=== PATIENT | female | born 1965 | race Caucasian/White ===

== ENCOUNTER 2016-09-18 10:08 | Day surgery (SDC) | payer MEDICARE ==
--- NOTE | 2016-09-18 07:20 | History and Physical Report ---
CHIEF COMPLAINT/HISTORY OF CHIEF COMPLAINT: This patient presents with a history of pain which is described as headaches. Examination shows the area along the suboccipital rim more right than left. She currently has a spinal cord stimulator in place which appears to be managing neck, shoulder and arm, but has not controlled the headaches and may even have exacerbated. She is here for an implanted peripheral nerve stimulator trial to determine if the implantation of a permanent system can be of any value in her pain control. PAST MEDICAL HISTORY: Chronic obstructive pulmonary disease, asthmatic bronchitis, hypertension, and seizure disorder. PAST SURGICAL HISTORY: Knee surgery, section, gastric bypass, gallbladder surgery, eye surgery, hysterectomy, and stimulator implant. MEDICATIONS ON ADMISSION: List to be provided. ALLERGIES: CODEINE, DEMEROL, AND NEURONTIN. SOCIAL AND FAMILY HISTORY: Thyroid disease, asthma, coronary artery disease, hypertension and cancer. Cigarette smoking. Caffeine consumption. SYSTEMS REVIEW: The patient is appropriate in no acute distress. PHYSICAL EXAMINATION: Height is 5', weight is 280. Vital signs are not available. HEENT: Within normal limits. LUNGS: Clear. HEART: Regular rate and rhythm. ABDOMEN: Nontender. MUSCULOSKELETAL: Examination of the musculoskeletal system shows the primary area of pain to be along the right suboccipital rim. Examination shows a very distinct area of pain consistent with the occipital distribution. IMPRESSION: OCCIPITAL NEURALGIA, ICD10 CODE M54.81. PLAN: The patient is here for an implanted peripheral nerve stimulator trial to determine if the implantation of a permanent system can be of any value. The leads will be implanted surgically, the external component will be percutaneously exiting the skin and interface to an external generator. Should the trial succeed then she will have the externalized component removed and interfaced to a generator. The patient understands all of the potential risks, side effects, and complications including nerve root injury and spinal headache. EDY PATEL D.O. Date & Time JOB NUMBER: [id number] [facility]
[~2016-09-18 10:08] MED LIST: ACETAMINOPHEN 1000MG/100 ML PREMIX IV ONE; CEFAZOLIN 2 Gram 50 ML IVPB ONE; FAMOTIDINE 20MG TABLET PO ONE; MECLIZINE 25 MG TABLET PO ONE; METOCLOPRAMIDE 10 MG TABLET PO ONE
[2016-09-18] MEDS ORDERED: HYDROMORPHONE HCL 2 MG/ML VIAL IM PRN (14:07)
[2016-09-18] MEDS ORDERED: HYDROCODONE/APAP 7.5/325MG TABLET PO PRN ×2 (14:07)
[2016-09-18] MEDS ORDERED: AL HYDROX/MAG HYDROX 30ML UD PO PRN (14:07)
[2016-09-18] MEDS ORDERED: HYDROMORPHONE HCL 1 MG/ML CPJ IM PRN (14:07)
[2016-09-18] MEDS ORDERED: OXYCODONE/APAP 10MG-325MG TABLET PO PRN ×2 (14:07)
[2016-09-18] MEDS ORDERED: BUPIVACAINE 0.5% W/EPI MPF 30 ML VIAL IVP ONE (14:48)
[2016-09-18] MEDS ORDERED: CEFAZOLIN 1G VIAL IM ONE (14:48)
[2016-09-18] MEDS ORDERED: HYDROMORPHONE HCL 2 MG/ML VIAL IV ONE ×2 (14:48→14:49)
[2016-09-18] MEDS ORDERED: LIDOCAINE 1% W/EPI 1:200,000 MPF 30ML SQ ONE (14:48)
[2016-09-18] MEDS ORDERED: LIDOCAINE 2% MDV (20MG/ML) 20ML VIAL IV ONE (14:49)
[2016-09-18] MEDS ORDERED: PROPOFOL 10 MG/ML VIAL IV ONE (14:49)
[2016-09-18] MEDS ORDERED: FENTANYL PF 100MCG/2ML VIAL IV ONE (14:49)
[2016-09-18] MEDS ORDERED: MIDAZOLAM HCL 2MG/2ML VIAL IV ONE (14:49)
--- NOTE | 2016-09-18 17:34 | Operative Note - Ferro ---
DATE OF SURGERY: 09/18/16 PREOPERATIVE DIAGNOSIS: INTRACTABLE HEADACHES WITH OCCIPITAL NEURALGIA, ICD- 10 CODE = M54.81. OPERATION: 1. FLUOROSCOPICALLY-GUIDED RIGHT [place] SCIENTIFIC OCTAPOLAR WITH 8 ELECTRODES INSERTED RIGHT FOR PERIPHERAL NERVE STIMULATOR RIGHT OCCIPITAL NERVE. 2. FLUOROSCOPICALLY-GUIDED RIGHT [place] SCIENTIFIC OCTAPOLAR WITH 8 ELECTRODES INSERTED RIGHT INFERIOR TO LEAD 1 FOR PERIPHERAL NERVE STIMULATOR RIGHT LATERAL OCCIPITAL. 3. COMPLEX PROGRAMMING LEAD 1, 20 MINUTES. 4. COMPLEX PROGRAMMING LEAD 2, 20 MINUTES. 5. INCISION, SUBCUTANEOUS DISSECTION, AND ANCHORING OF LEAD 1 AND LEAD 2 TO MIDLINE SUPRASPINOUS FASCIA. 6. TUNNELING RIGHT POSTERIOR THORACIC SUPRASCAPULAR AREA. CREATION OF SUBCUTANEOUS POUCH. 7. INTERFACE EACH LEAD WITH EXTENSION. EACH EXTENSION PERCUTANEOUS EXITING POUCH INFERIOR. 8. INTERFACE EACH PERIPHERAL NERVE STIMULATOR EXTENSION WITH EXTERNAL GENERATOR HOME USE PERIPHERAL NERVE STIMULATOR FOR OCCIPITAL TRIAL. 9. COMPLEX PROGRAMMING RECOVERY ROOM TWO PERIPHERAL NERVE STIMULATORS FOR OCCIPITAL NERVES, 2O MINUTES. SURGEON: EDY PATEL D.O. ANESTHESIA: LOCAL SEDATION. ANESTHESIA PROVIDER: JOYA GUERRERO CRNA. INDICATION: This patient presents with intractable headaches related to occipital nerve neuritis. Occipital nerve block successful but no duration. She is here for the placement of an implanted peripheral nerve stimulator for the occipital nerve using two leads implanted and externalized connections for 7-14 days trial. If successful, implant procedure will be performed. If unsuccessful , the implanted leads will be removed. PROCEDURE: Intravenous line, vital sign monitoring, IV sedation, prepped and draped sterile technique. Patient position prone. Sterile prep, sterile technique. The right posterior suboccipital region was prepped. The location of the splenius and semispinalis muscle groups were marked on the skin using an oblique angle. After an incision was made and subcutaneous dissection at the anatomic midline, two needles curved slightly to fit the anatomy of the region were then placed running an oblique angle from the midline towards the suboccipital rim; one superior, one slightly inferior, related to the location of the greater occipital nerve. Complex programming of lead 1 over 20 minutes followed by complex programming of lead 2 over 20 minutes ultimately resulting in complete patterns of stimulation across all of the regions of the suboccipital area controlling occipital pain and headaches to the right; patient indicating we have full and complete control of her headache. She was given the option to implant the leads for trial or to remove; she opted to implant. Questions repeated with the same response. The incision was widened and then each lead was anchored to the supraspinous fascia using a nonabsorbable suture. Right of the midline approximating the suprascapular area , skin infiltrated, incision made, and subcutaneous dissection was conducted to form a small pouch. A tunneling tool was then used to connect this pouch with the midline occipital peripheral nerve stimulator pouch. The external portion of each peripheral nerve stimulator was then carried into the suprascapular pouch by way of a tunneling tool. Each of the two leads was interfaced with a separate extension. Antibiotic irrigation. Bovie for hemostasis. The lead and proximal component of the extension were then placed into the pouch. A needle was used to penetrate inferior to the pouch exiting the external portion of each extension. The lead and the proximal extension subcutaneous in the pouch. The midline cervical incision was closed Vicryl for fascia, running subcuticular Vicryl for skin. The suprascapular pouch was closed with Vicryl for fascia and nylon for skin. Dressings were placed. She was transported to the Recovery Room stable showing no side-effects from the procedure or the sedation. When fully awake and alert, complex re-programming in the Recovery Room performed re-establishing stimulation in all of the appropriate areas for the headache on the right side. She was monitored until stable. DISCHARGE INSTRUCTIONS IN THE MORNIN. The sites will remain clean and dry. No showering or bathing in any way that would disrupt dressings. If that happens, contact the clinic. 2. Standard medications resumed, including Levaquin, the antibiotic, 500 mg once a day for 14 days. 3. The trial will run 7-14 days. If during the first seven days she is convinced we are in all of the right spots, then she will be scheduled for full implant. If she is still having some issues or questions with respect to programming, the trial will run a maximum of 14 days at which point either the implanted leads will be removed or a generator will be interfaced for permanent implant. 4. Her diet is unchanged but activities remain relatively low throughout the trial period limiting bend, lift, push, pull. 5. All other instructions provided, numbers to contact, problems given. She was then prepared for discharge. EDY PATEL D.O. Date & Time cc: Dr. Doni Montiel JOB NUMBER: [id number] [facility]
--- NOTE | 2016-09-24 10:15 | RADIOLOGY REPORT ---
EXAM: AP CERVICAL SPINE HISTORY: POST PERIPHERAL NERVE STIMULATOR TRIAL WITH IMPLANTED LEADS. TECHNIQUE: AP view of the cervical spine was obtained. Comparison: Cervical spine film dated 08/16/15. FINDINGS: On the previous study there were a couple stimulator lead tips extending up to the approximate C2-C3 level. These are probably still present, but there are now two additional segmented stimulator leads that project somewhat obliquely overlying the C1-C2 level. Correlation with the specifics of the procedure suggested. New corresponding catheter like density along the right side of the cervical spine. IMPRESSION: SOME APPARENT NEW STIMULATOR LEADS EXTENDING OBLIQUELY OVERLYING THE REGION OF THE C1-C2 LEVEL COMPARED TO THE PRIOR STUDY. JOB NUMBER: [id number] MTDD
== END 2016-09-18 15:45 | disposition home or self-care (01) ==
LOC: SUR 10:08 → MEDSURG 13:50 → SUR 15:45
PROVIDERS: ATTEND Pain Medicine Interventional Pain Medicine
DX: M54.81 Occipital neuralgia (principal); I10 Essential (primary) hypertension; J44.9 Chronic obstructive pulmonary disease, unspecified; Z98.890 Other specified postprocedural states; I47.1 Supraventricular tachycardia
CPT/HCPCS: 72020; 95972; C1778; J0690

== ENCOUNTER 2016-09-25 07:29 | Day surgery (SDC) | payer MEDICARE ==
--- NOTE | 2016-09-25 06:48 | History and Physical Report ---
CHIEF COMPLAINT/HISTORY OF CHIEF COMPLAINT: This patient's with a history of headaches. She had an implanted peripheral nerve stimulator with externalized connections performed on 09/18/16. She is here for a complete implantation due to the success of the procedure in controlling headaches. PAST MEDICAL HISTORY: Chronic obstructive pulmonary disease, asthmatic bronchitis, hypertension, and seizure disorder. PAST SURGICAL HISTORY: Knee surgery, section, gastric bypass, gallbladder surgery, eye surgery, hysterectomy, and stimulator implant. MEDICATIONS ON ADMISSION: List to be provided. ALLERGIES: CODEINE, DEMEROL AND NEURONTIN. FAMILY/PSYCHOSOCIAL HISTORY: Thyroid disease, asthma, coronary artery disease, hypertension and cancer. Cigarette smoking. Caffeine consumption. SYSTEMS REVIEW: The patient is appropriate in no acute distress. PHYSICAL EXAMINATION: Height is 5', weight is 280. No vital signs. HEENT: Within normal limits. LUNGS: Clear. HEART: Regular rate and rhythm. ABDOMEN: Nontender. MUSCULOSKELETAL: The musculoskeletal system shows the incision at the posterior cervical spine with lead placement. Dressings are in place surrounding and enclosing the externalized connectors slightly right of the midline mid thoracic spine. Sensory browning are intact. NEUROLOGICAL: Cranial nerves are intact. IMPRESSION: 1. INTRACTABLE HEADACHES OCCIPITAL, ICD10 CODE M54.81. 2. IMPLANTED PERIPHERAL NERVE STIMULATORS FOR CONTROL OF OCCIPITAL NERVES WITH EXTERNALIZED ATTACHMENTS. PLAN: The patient is here for removal of the connectors and implantation of a generator. The procedure will be considered outpatient although an overnight stay will be evaluated. EDY PATEL D.O. Date & Time JOB NUMBER: [id number] MTDD
[2016-09-25] MEDS ORDERED: OXYCODONE/APAP 10MG-325MG TABLET PO ONE (15:51)
[2016-09-25] MEDS ORDERED: HYDROMORPHONE HCL 2 MG/ML VIAL IV ONE ×2 (15:51→15:55)
[2016-09-25] MEDS ORDERED: LIDOCAINE 1% W/EPI 1:200,000 MPF 30ML SQ ONE (15:51)
[2016-09-25] MEDS ORDERED: BUPIVACAINE 0.5% W/EPI MPF 30 ML VIAL IVP ONE (15:51)
[2016-09-25] MEDS ORDERED: CEFAZOLIN 1G VIAL IM ONE (15:51)
[2016-09-25] MEDS ORDERED: MIDAZOLAM HCL 2MG/2ML VIAL IV ONE (15:55)
[2016-09-25] MEDS ORDERED: PROPOFOL 10 MG/ML VIAL IV ONE (15:55)
[2016-09-25] MEDS ORDERED: LIDOCAINE 2% MDV (20MG/ML) 20ML VIAL IV ONE (15:55)
[2016-09-25] MEDS ORDERED: FENTANYL PF 100MCG/2ML VIAL IV ONE (15:55)
--- NOTE | 2016-09-26 15:35 | Operative Note - Ferro ---
DATE OF SURGERY: 09/25/16 PREOPERATIVE DIAGNOSES: 1. OCCIPITAL NEURALGIA WITH INTRACTABLE HEADACHES, ICD-10 CODE = M54.81. 2. EXTERNALIZED CONNECTORS PERIPHERAL NERVE STIMULATORS RIGHT POSTERIOR THORACIC SPINE. OPERATION: 1. INCISION, SUBCUTANEOUS DISSECTION RIGHT POSTERIOR THORACIC SPINE INCISION. REVISION OF LEAD PLACEMENT. SEPARATION OF LEADS FROM CONNECTORS. 2. INCISION, SUBCUTANEOUS DISSECTION, AND CREATION OF SUBCUTANEOUS POUCH AT RIGHT FLANK FOR PLACEMENT OF GENERATOR IDENTIFIED [employer] SCIENTIFIC PROGRAMMABLE RECHARGEABLE. 3. TUNNELING BETWEEN INCISIONAL POUCHES. 4. INTERFACE LEADS AT THORACIC POUCH WITH CONNECTORS. PLACEMENT OF CONNECTORS INTO TUNNELING TOOL TUNNELED INTO RIGHT FLANK POUCH. 5. LEAD CONNECTORS AND EXTENSIONS INTERFACED TO INTERNAL PULSE GENERATOR. GENERATOR PLACED INTO POUCH SECURED TO POSTERIOR FASCIA USING NONABSORBABLE SUTURE. 6. PLACEMENT OF LEADS AND EXTENSIONS INTO THORACIC POUCH. CLOSURE OF INCISION VICRYL FOR FASCIA, RUNNING SUBCUTICULAR VICRYL FOR SKIN. DERMABOND CLOSURE. 7. PROGRAMMING OF GENERATOR AT RIGHT FLANK. TWO OCTAPOLAR PERIPHERAL STIMULATORS FOR OCCIPITALS, 20 MINUTES. . SURGEON: EDY PATEL D.O. ANESTHESIA: LOCAL SEDATION. ANESTHESIA PROVIDER: JOYA GUERRERO CRNA. INDICATION: This patient presents with a history of intractable occipital headaches. A previous implantation of peripheral nerve stimulators for the occipital nervous system succeeded. The leads were exteriorized by way of a connection or external interface extension. Today, we will remove the external extensions, revise the lead position, interface the leads to new extensions, and then direct to the right flank where a pouch will be made for the generator. PROCEDURE: Intravenous line, vital sign monitoring, IV sedation, prepped and draped sterile technique. The thoracic pouch on the right was infiltrated with local, incision made, and subcutaneous dissection was conducted to the leads and the externalized extensions. The externalized extension was cut and removed for both leads. Two extensions removed. The lead positioning was revised. The pouch was enlarged. The revision of the lead positions within the pouch performed. A new extension was then interfaced to the leads and the extensions for the two leads tunneled into the right flank. Each extension was then interfaced to a generator. Antibiotic irrigation. Bovie for hemostasis. The generator interfaced to the leads was placed into the pouch and secured to the fascia with nonabsorbable suture. The leads and their extensions were coiled into the thoracic pouch. Antibiotic irrigation. Bovie for hemostasis. The incisions were closed Vicryl for fascia, running subcuticular Vicryl for skin. Dermabond closure system was placed. She was transported to the Recovery Room stable showing no side-effects from the procedure or the sedation. When fully awake and alert, complex programming in the Recovery Room performed re- establishing stimulation in pain control to all of the appropriate places. The patient was instructed on the use of the system, providing information, error messaging, and then prepared for discharge. DISCHARGE INSTRUCTIONS IN THE MORNIN. The sites will remain clean and dry. No showering or bathing in any way that would disrupt dressings. If that happens, contact the clinic. The Dermabond will allow showering. 2. Standard medications resumed. The patient has been on Levaquin for approximately 14 days and she will continue for another 10. She will be seen in the office in 5-7 days to evaluate the sites. Until then, her activities will stay low. At the office visit, she will be evaluated for further activity or restrictions. All other instructions provided, numbers to contact, problems given. She was then discharged. EDY PATEL D.O. Date & Time cc: Dr. España JOB NUMBER: [id number] MTDD
== END 2016-09-25 13:05 | disposition home or self-care (01) ==
LOC: SUR 07:29
PROVIDERS: ATTEND Pain Medicine Interventional Pain Medicine
DX: M54.81 Occipital neuralgia (principal); I10 Essential (primary) hypertension; J44.9 Chronic obstructive pulmonary disease, unspecified; F17.200 Nicotine dependence, unspecified, uncomplicated
CPT/HCPCS: 64590; 00300; 95972; J3010; J1170; J0690

== ENCOUNTER 2017-07-02 06:53 | Day surgery (SDC) | payer MEDICARE ==
--- NOTE | 2017-07-02 06:37 | History and Physical Report ---
DATE: 07/01/2017. CHIEF COMPLAINT AND HISTORY OF CHIEF COMPLAINT: This patient presents with a history of an intractable lumbar radiculitis. He has a spinal cord stimulator which was implanted on 09/25/2016. It was recently identified that the generator and system were achieving up to 80 percent pain control. The patient was noticing that in order to maintain the stimulation, she was recharging so frequently that it became rate limiting. We had a discussion regarding the newer systems on the market which have a better charge period, a greater potential for more long-term use, and the need to charge less often. 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 PAST MEDICAL HISTORY: Chronic obstructive pulmonary disease, asthmatic bronchitis, hypertension, seizure disorder. PAST SURGICAL HISTORY: Knee surgery, section, gastric bypass, gallbladder surgery, eye surgery, hysterectomy, spinal cord stimulator. MEDICATIONS ON ADMISSION: To be provided. ALLERGIES: Codeine, Demerol, Neurontin. SOCIAL HISTORY: Smoking and caffeine. FAMILY HISTORY: Thyroid disease, asthma, coronary artery disease, hypertension , cancer. REVIEW OF SYSTEMS: The patient is appropriate and in no acute distress. PHYSICAL EXAMINATION: General: Height and weight are unknown. Vital Signs: Not available. HEENT: Within normal limits. Lungs: Clear. Heart: Regular rate and rhythm. Abdomen: Nontender. Musculoskeletal: Examination of the musculoskeletal system shows the stimulator pouch at the right flank. The incision is intact. There is no breakdown or cellulitis. Further evaluation shows pain across the lower extremities, somewhat more right than left. Sensory field evaluation shows no obvious deficits. Motor functionality is intact. Ambulation: No assistive device utilized. Neurologic: Cranial nerves are intact. IMPRESSION: 1. LUMBAR RADICULITIS, ICD-10 CODE M54.16 AND M54.17. 2. SPINAL CORD STIMULATOR WITH INTERNAL PULSE GENERATOR MALFUNCTION. PLAN: We are here to replace the generator with a new-generation generator which will hold a charge and will not require recharging as frequently to maintain stimulation for pain control. The procedure will be considered outpatient, although an overnight stay will be evaluated. All of the potential risks, side effects, and complications have been reviewed and discussed. JOB NUMBER: [id number] cc: Regina Jain
[~2017-07-02 06:53] MED LIST changes: +ACETAMINOPHEN 1,000 MG/100 ML BTL IV ONE; -ACETAMINOPHEN 1000MG/100 ML PREMIX IV ONE; +CEFAZOLIN 2 Gram 2 GM/50 ML BAG IVPB ONE; -CEFAZOLIN 2 Gram 50 ML IVPB ONE
[2017-07-02] MEDS ORDERED: FENTANYL PF 100MCG/2ML VIAL IV ONE (06:54)
[2017-07-02] MEDS ORDERED: MIDAZOLAM HCL 2MG/2ML VIAL IV ONE (06:54)
[2017-07-02] MEDS ORDERED: BUPIVACAINE 0.75% W/EPI MPF 30ML VIAL IVP ONE (06:54)
[2017-07-02] MEDS ORDERED: CEFAZOLIN 1G VIAL IM ONE (06:54)
[2017-07-02] MEDS ORDERED: LIDOCAINE 1% W/EPI 1:200,000 MPF 30ML SQ ONE (06:54)
[2017-07-02] MEDS ORDERED: PROPOFOL 10 MG/ML VIAL IV ONE (06:54)
[2017-07-02] MEDS ORDERED: LIDOCAINE 2% MDV (20MG/ML) 20ML VIAL IV ONE (06:54)
[2017-07-02] MEDS ORDERED: HYDROMORPHONE HCL 2 MG/ML VIAL IV ONE (06:54)
--- NOTE | 2017-07-02 16:21 | Operative Note - Ferro ---
DATE OF SURGERY: 07/02/17 PREOPERATIVE DIAGNOSES: 1. CERVICAL RADICULITIS, ICD-10 CODE = M54.13. 2. SPINAL CORD STIMULATOR FOR PAIN CONTROL WITH BATTERY DEPLETION. OPERATION: FLUOROSCOPICALLY-GUIDED INCISION, SUBCUTANEOUS DISSECTION, AND LNM5OLS AND REPLACEMENT OF INTERNAL PULSE GENERATOR AT RIGHT POSTERIOR GLUTEAL MARGIN. SURGEON: EDY PATEL D.O. ANESTHESIA: LOCAL SEDATION. ANESTHESIA PROVIDER: JOYA GUERRERO CRNA. INDICATION: This patient presents with a history of a intractable cervical lumbar radiculitis. The patient currently has both cervical and lumbar stimulators in place. The generator for the lumbar system has been an issue with battery depletion and significant protracted reprogramming requirements. Due to the failure of its functionality, she is here for replacement with the new generator with greater potential for battery and power storage and less reprogramming and less recharging requirements. PROCEDURE: Intravenous line, vital sign monitoring, IV sedation, prepped and draped in sterile technique. Patient position prone. Sterile prep, sterile technique. The incision at the right posterior gluteal margin was identified, skin infiltrated, incision made, and subcutaneous dissection was conducted to the generator pouch. The generator pouch was opened and the generator from the interna leads. Antibiotic irrigation. Bovie for hemostasis. A new generator was placed onto the field and interfaced with the indwelling leads. The generator was placed into the pouch, secured to the posterior fascia with nonabsorbable suture, and the incision was closed Vicryl for fascia, running subcuticular Vicryl for skin. Dermabond closure. She was transported to the Recovery Room stable, showing no side-effects from the procedure or the sedation. Complex programming was performed re-establishing stimulation and pain control to all of the appropriate areas. DISCHARGE INSTRUCTIONS: 1. Sites to remain clean and dry, although the patient may shower in 24 hours. 2. Standard medications resumed including Levaquin, the antibiotic, 500 mg once a day for 14 days. 3. The office will contact the patient in the next 24 hours to set up an appointment in 7-10 days to evaluate the site. Until that period of time, she is to keep her activities low. All other instructions provided, numbers to contact, problems given. She was then discharged. cc: Dr. España JOB NUMBER: [id number] [facility]
== END 2017-07-02 08:55 | disposition home or self-care (01) ==
LOC: SUR 06:53
PROVIDERS: ATTEND Pain Medicine Interventional Pain Medicine
DX: T85.193A Other mechanical complication of implanted electronic neurostimulator, generator, initial encounter (principal); M54.13 Radiculopathy, cervicothoracic region
CPT/HCPCS: 63685; 00300; J3010; J1170; J0690; J3490; C1820

== ENCOUNTER 2018-05-04 15:20 | Inpatient (IN) | payer MEDICARE ==
--- NOTE | 2018-05-04 16:07 | Emergency Department Record ---
History of Present Illness - General Chief Complaint: Wound, check Stated Complaint: INFECTION IN A SURGICAL INCISION Time Seen by Provider: 05/04/18 15:55 Source: Patient Mode of arrival: Ambulatory Limitations: No limitations - History of Present Illness Initial Comments: pt has had incresing pain and drainage over her stimulator.she was sent over by dr wyatt's office. she was started on oral abx. they wanted her started on iv antibiotics. MD Complaint: Needs IV antibiotics Onset/Timin -: Month(s) Returns Today for: Needs IV antibiotics Symptoms Since Prior Visit: Worsening pain Associated Symptoms: None - Related Data Home Medications Medication Instructions Recorded Confirmed Last Taken Clonazepam [Klonopin] 0.5 mg PO DAILY 05/04/18 05/04/18 Unknown Cyclobenzaprine HCl [Flexeril] 10 mg PO QHS 05/04/18 05/04/18 Unknown Duloxetine HCl [Cymbalta] 60 mg PO BID 05/04/18 05/04/18 Unknown Famotidine 20 mg PO BID 05/04/18 05/04/18 Unknown Flecainide Acetate 50 mg PO BID 05/04/18 05/04/18 Unknown Lisinopril 10 mg PO DAILY 05/04/18 05/04/18 Unknown Oxymorphone HCl [Opana] 40 mg PO QID 05/04/18 05/04/18 Unknown Oxymorphone HCl [Oxymorphone HCl 20 mg PO BID 05/04/18 05/04/18 Unknown ER] Allergies Allergy/AdvReac Type Severity Reaction Status Date / Time meperidine HCl [From Demerol] Allergy Intermediate HIVES Verified 05/04/18 15:42 gabapentin [From Neurontin] AdvReac Severe ALTERED Verified 05/04/18 15:42 MENTAL STATUS adhesive tape AdvReac Intermediate SKIN Verified 05/04/18 15:42 IRRITATION codeine AdvReac Intermediate "I Verified 05/04/18 15:42 hyperventilate" NSAIDS (Non-Steroidal AdvReac Intermediate NAUSEA AND Verified 05/04/18 15:42 Anti-Inflamma VOMITING IV morphine AdvReac Intermediate DIFFICULTY Uncoded 08/07/15 10:32 SWALLOWING Travel Screening - Travel/Exposure Within Last 30 Days Have you traveled within the last 30 days?: No Review of Systems Reviewed: No additional complaints except as noted below Constitutional: Reports: As per HPI. Denies: Chills, Fever, Malaise, Night sweats, Weakness, Weight change Eyes: Reports: As per HPI. Denies: Eye discharge, Eye pain, Photophobia, Vision change ENT: Reports: As per HPI. Denies: Congestion, Dental pain, Ear pain, Epistaxis , Hearing loss, Throat pain Respiratory: Reports: As per HPI. Denies: Cough, Dyspnea, Hemoptysis, Stridor, Wheezes Cardiovascular: Reports: As per HPI. Denies: Arrhythmia, Chest pain, Dyspnea on exertion, Edema, Murmurs, Orthopnea, Palpitations, Paroxysmal nocturnal dyspnea, Rheumatic Fever, Syncope Endocrine: Reports: As per HPI. Denies: Fatigue, Heat or cold intolerance, Polydipsia, Polyuria Gastrointestinal: Reports: As per HPI. Denies: Abdominal pain, Constipation, Diarrhea, Hematemesis, Hematochezia, Melena, Nausea, Vomiting Genitourinary: Reports: As per HPI. Denies: Abnormal menses, Discharge, Dyspareunia, Dysuria, Frequency, Hematuria, Incontinence, Retention, Urgency Musculoskeletal: Reports: As per HPI. Denies: Arthralgia, Back pain, Gout, Joint swelling, Myalgia, Neck pain Skin: Reports: As per HPI. Denies: Bruising, Change in color, Change in hair/ nails, Lesions, Pruritus, Rash Neurological: Reports: As per HPI. Denies: Abnormal gait, Confusion, Headache, Numbness, Paresthesias, Seizure, Tingling, Tremors, Vertigo, Weakness Psychiatric: Reports: As per HPI. Denies: Anxiety, Auditory hallucinations, Depression, Homicidal thoughts, Suicidal thoughts, Visual hallucinations Hematological/Lymphatic: Reports: As per HPI. Denies: Anemia, Blood Clots, Easy bleeding, Easy bruising, Swollen glands Past Medical History - SOCIAL HISTORY Smoking Status: Former smoker Alcohol Use: None Drug Use: None - RESPIRATORY Hx Respiratory Disorders: Yes Hx Bronchitis: Yes Hx COPD: Yes Hx Dyspnea: Yes Hx Pneumonia: Yes Comment:: sinus chronic - CARDIOVASCULAR Hx Cardio Disorders: Yes Hx Abnormal EKG: Yes Hx Cardiac Cath: Yes (december 2014-attempted x2 (ablation)) Hx Deep Vein Thrombosis: No Hx Hypertension: Yes (controlled with meds) Hx Irregular Heartbeat: Yes - NEURO Hx Neuro Disorders: Yes Hx Headaches: Yes (neck pain occassionally) Hx Seizures: Yes (hit head with TIA and had a seizure) Hx TIA: Yes Hx Weakness: Yes (legs-left worse) Comment:: "I have memory problems" - GI Hx GI Disorders: Yes Hx Abdominal Pain: (denies) Hx Diverticulitis: Yes Hx Reflux: Yes Hx Irritable Bowel: Yes Hx Nausea/Vomiting: No (denies) Hx Obstructive Bowel: (tend to be constipated) Hx Pancreatitis: Yes Hx Rectal Bleeding: No (denies) Hx Ulcer: Yes ("a few in colon") Comment:: gastric bypass 16 years ago - Hx Genitourinary Disorders: Yes Hx Kidney Stones: Yes Hx Renal Disease: Yes ("backs up"-lithotripsy done x4) Comment:: post hyst - ENDOCRINE Hx Endocrine Disorders: No - MUSCULOSKELETAL Hx Musculoskeletal Disorders: Yes Hx Arthritis: Yes (RA DDD neck herniated disc lumbar) Hx Fibromyalgia: Yes Comment:: rheumatoid arthritis - PSYCH Hx Psych Problems: Yes Hx Anxiety: Yes Hx Depression: Yes - HEMATOLOGY/ONCOLOGY Hx Hematology/Oncology Disorders: Yes Hx Anemia: Yes (due to gastric bypass) Hx Blood Transfusions: Yes Hx Blood Transfusion Reaction: No Family Medical History Any Significant Family History?: Yes Hx Cancer: Mother, Grandparents Hx Heart Disease: Father, Brother/Sister, Grandparents Hx HTN: Mother, Brother/Sister Physical Exam - General General Appearance: Alert, Oriented x3, Cooperative, Mild distress - Head Head exam: Normal inspection - Eye Eye exam: Normal appearance, PERRL, EOMI Pupils: Normal accommodation - ENT ENT exam: Normal exam, Mucous membranes moist, Normal external ear exam, Normal orophraynx Ear exam: Normal external inspection. negative: External canal tenderness Nasal Exam: Normal inspection. negative: Discharge, Sinus tenderness Mouth exam: Normal external inspection, Tongue normal Teeth exam: Normal inspection. negative: Dental caries Throat exam: Normal inspection. negative: Tonsillar erythema, Tonsillar exudate - Neck Neck exam: Normal inspection, Full ROM. negative: Tenderness - Respiratory Respiratory exam: Normal lung sounds bilaterally. negative: Respiratory distress - Cardiovascular Cardiovascular Exam: Regular rate, Normal rhythm, Normal heart sounds - GI/Abdominal GI/Abdominal exam: Soft, Normal bowel sounds. negative: Tenderness - Rectal Rectal exam: Deferred - exam: Deferred - Extremities Extremities exam: Normal inspection, Full ROM, Normal capillary refill. negative: Tenderness - Back Back exam: Reports: Normal inspection, Full ROM, Tenderness, Other (tenderness and swelling over stimulator). Denies: Muscle spasm, Rash noted - Neurological Neurological exam: Alert, CN II-XII intact, Normal gait, Oriented X3 - Psychiatric Psychiatric exam: Normal affect, Normal mood - Skin Skin exam: Dry, Intact, Normal color, Warm Course Vital Signs 05/04/18 15:37 Temperature 99.0 F Pulse Rate 78 Respiratory 20 Rate Blood Pressure 168/91 Pulse Ox 97 Medical Decision Making - Lab Data Result diagrams: 05/04/18 16:10 05/04/18 16:10 Disposition Disposition: Admit Clinical Impression: Abscess after procedure, Abscess and cellulitis of gluteal region Disposition: Still a Patient at [facility] Decision to Admit: Admit from ER Decision to Admit Date: 05/04/18 Decision to Admit Time: 17:21 Forms: Patient Portal Access Quality - Quality Measures Quality Measures: N/A - Blood Pressure Screening Does Patient Have Any of the Following: Active Dx of HTN Blood Pressure Classification: Hypertensive Reading Systolic Measurement: 168 Diastolic Measurement: 91 Screening for High Blood Pressure: Patient Exclusion, Hx of HTN [[id number]]
[2018-05-04 16:15] LABS: BASO % 0.6 % (0-6); EOS % 4.6 % (0-6); GRAN % 46.8 % (47-80); HEMATOCRIT 38.2 % (35.0-47.0); LYMPH % 37.2 % (16-45); MEAN CELL VOLUME 93.4 fl (81-97); MEAN CORPUSCULAR HEMOGLOBIN 29.3 pg (27-33); MEAN CORPUSCULAR HGB CONC 31.4 g/dl (32-36); MEAN PLATELET VOLUME 10.9 fl (7.4-10.4); MONO % 10.8 % (0-9); PLATELET COUNT 278 K/uL (130-400); RED BLOOD COUNT 4.09 M/uL (3.80-5.40); RED CELL DISTRIBUTION WIDTH 13.3 % (11.5-14.5); WHITE BLOOD COUNT W/O DIFF 6.7 K/uL (4.2-12.2)
[2018-05-04 16:28] LABS: BLOOD UREA NITROGEN 9 mg/dL (6-20); CREATININE 0.7 mg/dL (0.5-0.9); EST GLOMERULAR FILTRATION RATE > 60 mL/min
[2018-05-04 16:31] LABS: GLUCOSE,RANDOM 93 mg/dL (74-109)
[2018-05-04] MEDS ORDERED: CLINDAMYCIN 600MG/50ML PREMIX 600 MG/50 ML BAG IVPB ONE (17:08)
[2018-05-04] MEDS ORDERED: ACETAMINOPHEN 500 MG TABLET PO PRN (17:23)
[2018-05-04] MEDS: CLINDAMYCIN 600MG/50ML PREMIX 600 MG/50 ML BAG IVPB SCH (18:43)
[2018-05-04] MEDS: OXYMORPHONE HCL 40 MG PO SCH (18:44)
[2018-05-04] MEDS: CYCLOBENZAPRINE 10 MG PO SCH (21:00)
[2018-05-04] MEDS: FLECAINIDE ACETATE 50 MG PO SCH (21:00)
[2018-05-04] MEDS: LISINOPRIL 10 MG PO SCH (21:00)
[2018-05-04] MEDS: FAMOTIDINE 20 MG PO SCH (21:00)
[2018-05-04] MEDS: DULOXETINE 60 MG PO SCH (21:00)
[2018-05-04] MEDS: CLONAZEPAM 0.5 MG PO SCH (21:00)
[2018-05-04] MEDS: OXYMORPHONE 20 MG PO SCH (21:00)
[2018-05-04] MEDS: OXYMORPHONE 10 MG PO SCH (21:00)
[2018-05-04] MEDS ORDERED: FAMOTIDINE 20MG TABLET PO SCH (22:00)
[2018-05-04] MEDS ORDERED: DULOXETINE HCL 30 MG CAPSULE.DR PO SCH (22:00)
[2018-05-04] MEDS ORDERED: FLECAINIDE ACETATE 50 MG TABLET PO SCH (22:00)
[2018-05-04] MEDS ORDERED: CYCLOBENZAPRINE 10MG TABLET PO SCH (22:00)
[2018-05-05] MEDS: CLINDAMYCIN 600MG/50ML PREMIX 600 MG/50 ML BAG IVPB SCH ×3 (01:49→16:54)
--- NOTE | 2018-05-05 05:08 | CT SCAN REPORT ---
EXAM: CT OF THE ABDOMEN AND PELVIS WITHOUT CONTRAST HISTORY: OLD INCISION LEAKING WITH POSSIBLE INFECTION. POSTOPERATIVE STIMULATOR PLACEMENT. TECHNIQUE: CT of the abdomen and pelvis without intravenous or oral contrast was performed. Sagittal and coronal reformatted images were obtained and reviewed accordingly. Comparison: None. FINDINGS: The lung bases are unremarkable. Status post cholecystectomy. The liver, spleen, pancreas, and adrenal glands are unremarkable. No radiopaque urinary tract calculus or urinary tract dilation. Small simple cyst in the left upper renal pole. Status post Arthur-En- Y gastric bypass. No bowel obstruction. No enlarged lymph nodes in the abdomen or pelvis. No abdominal aortic aneurysms. No ascites or pneumoperitoneum. The uterus is surgically absent. There are two stimulator battery packs in the right flank. Plate like soft tissue density is noted about the lower leads of the caudal most stimulator battery pack, which measures fluid attenuation. This is nonspecific and suboptimally evaluated without intravenous contrast. A small amount of fluid is also noted about the stimulator leads that communicate with the caudal most battery pack, which is also suboptimally assessed without IV contrast. The cranial aspect of the stimulator leads are excluded from the field of view and not evaluated. There are degenerative changes of the thoracolumbar spine, most notably at L5- S1. IMPRESSION: SMALL AMOUNT OF NONSPECIFIC FLUID IS NOTED ABOUT THE CAUDAL MOST RIGHT FLANK STIMULATOR BATTERY PACK AND ITS CORRESPONDING LEADS, WHICH IS NOT WELL EVALUATED GIVEN THE LACK OF IV CONTRAST. A LOCULATED FLUID COLLECTION CANNOT EXCLUDED WITHOUT INTRAVENOUS CONTRAST. JOB NUMBER: [id number] MTDD
[2018-05-05] MEDS: OXYMORPHONE HCL 40 MG PO SCH (07:19)
[2018-05-05] MEDS: DULOXETINE 60 MG PO SCH ×2 (09:46→22:59)
[2018-05-05] MEDS: FAMOTIDINE 20 MG PO SCH ×2 (09:46→22:59)
[2018-05-05] MEDS: OXYMORPHONE 20 MG PO SCH ×2 (09:47→23:00)
[2018-05-05] MEDS: OXYMORPHONE 10 MG PO SCH ×4 (09:47→22:59)
[2018-05-05] MEDS: FLECAINIDE ACETATE 50 MG PO SCH ×2 (09:47→22:59)
[2018-05-05] MEDS ORDERED: METOCLOPRAMIDE 10 MG TABLET PO ONE (11:30)
[2018-05-05] MEDS ORDERED: FAMOTIDINE 20MG TABLET PO ONE (11:30)
[2018-05-05] MEDS ORDERED: MECLIZINE 25 MG TABLET PO ONE (11:30)
[2018-05-05] MEDS ORDERED: ACETAMINOPHEN 1,000 MG/100 ML BTL IVPB ONE (11:30)
--- NOTE | 2018-05-05 13:45 | History and Physical - Ferro ---
CHIEF COMPLAINT/HISTORY OF CHIEF COMPLAINT: This patient was admitted through the Emergency Room on the previous night and has a history of a spinal cord stimulator implant with a subsequent generator pouch infection. She had a revision of the generator on 07/02/17 and the generator sits at the posterior gluteal margin. Oral antibiotic therapy had been initiated in the office approximately three to five days previous, once it was identified that she had a breakdown of the pouch. Attempts at getting her into a wound clinic were unsuccessful at [facility]. It was then felt appropriate to run her through the Emergency Room at [facility] to have her evaluated and then initiate the intravenous home therapy. PAST MEDICAL HISTORY: Chronic headaches, seizure disorder, asthmatic bronchitis , chronic obstructive pulmonary disease, hypertension, reflux esophagitis, degenerative arthritis, and depression. PAST SURGICAL HISTORY: Multiple knee surgeries, section, gastric bypass, gallbladder surgery, Lasik eye surgery, hysterectomy, appendectomy, and spinal cord stimulator implants. MEDICATIONS ON ADMISSION: List to be provided. ALLERGIES: CODEINE, DEMEROL, AND NEURONTIN. FAMILY/PSYCHOSOCIAL HISTORY: Social history - Smoking, social alcohol and caffeine. Family history - Thyroid disease, asthma, coronary artery disease, and hypertension. SYSTEMS REVIEW: The patient seems appropriate in no acute distress. The remainder of the systems review is noncontributory. PHYSICAL EXAMINATION: Height is 5'10", weight is 280. No vital signs. HEENT: Within normal limits. LUNGS: Clear. HEART: Regular rate and rhythm. ABDOMEN: Nontender. MUSCULOSKELETAL: Examination of the musculoskeletal system shows the right posterior gluteal margin generator pouch demonstrating a small oval area with an obvious penetration point and drainage although there is no current drainage. The area seems to be somewhat erythematous. Chronic pain pattern upper and lower extremity radiculopathy. NEUROLOGIC: Cranial nerves are intact. IMPRESSION: 1. INTRACTABLE CERVICAL RADICULOPATHY, ICD-10 CODE M54.12. 2. CERVICAL SPINAL CORD STIMULATOR AND INTERNAL GENERATOR WITH A BATTERY POUCH INFECTION. PLAN: The patient is here for removal of the internal pulse generator at the right posterior gluteal margin along with the cervical placed leads. Appropriate cultures will be taken. Current arrangements are being made for home intravenous therapy, a PIC line will be started, the antibiotic currently being evaluated is Cubicin which will be once a day for fourteen days on a home infusion basis. Appropriate nursing care will be set up for home visits. She will be evaluated at the end of the intravenous therapy to determine the removal of the PIC line and other measures. JOB NUMBER: [id number] MTDD
[2018-05-05] MEDS ORDERED: DIPHENHYDRAMINE HCL 50 MG/ML VIAL IVP PRN ×2 (14:53)
[2018-05-05] MEDS ORDERED: AL HYDROX/MAG HYDROX 30ML UD PO PRN (14:53)
[2018-05-05] MEDS ORDERED: SENNOSIDES/DOCUSATE SODIUM UD CAPSULE PO PRN ×2 (14:53)
[2018-05-05] MEDS ORDERED: OXYCODONE/APAP 10MG-325MG TABLET PO PRN ×2 (14:53)
[2018-05-05] MEDS ORDERED: HYDROCODONE/APAP 7.5/325MG TABLET PO PRN ×2 (14:53)
[2018-05-05] MEDS ORDERED: ACETAMINOPHEN 325 MG TAB PO PRN ×2 (14:53)
[2018-05-05] MEDS ORDERED: METOCLOPRAMIDE HCL 10 MG/2 ML VIAL IVP PRN (14:53)
[2018-05-05] MEDS ORDERED: TEMAZEPAM 15 MG CAPSULE PO PRN ×2 (14:53)
[2018-05-05] MEDS ORDERED: METOCLOPRAMIDE 10 MG TABLET PO PRN (14:53)
[2018-05-05] MEDS ORDERED: DIPHENHYDRAMINE HCL 25 MG CAPSULE PO PRN ×2 (14:53)
[2018-05-05] MEDS ORDERED: HYDROMORPHONE HCL 2 MG/ML VIAL IM PRN ×2 (14:53)
[2018-05-05] MEDS ORDERED: BUPIVACAINE 0.5% W/EPI MPF 30 ML VIAL IVP ONE (15:24)
[2018-05-05] MEDS ORDERED: LIDOCAINE 1% W/EPI 1:200,000 MPF 30ML SQ ONE (15:24)
[2018-05-05] MEDS ORDERED: VANCOMYCIN HCL 1 GM VIAL IVPB ONE (15:24)
--- NOTE | 2018-05-05 19:20 | Operative Note ---
DATE OF SURGERY: 05/05/2018 PREOPERATIVE DIAGNOSES: 1. INTRACTABLE CERVICAL RADICULITIS. 2. SPINAL CORD STIMULATOR INTERNAL GENERATOR WITH GENERATOR POUCH INFECTION. SURGERY: 1. INCISION, SUBCUTANEOUS DISSECTION, AND REMOVAL OF INTERNAL GENERATOR FROM INFECTED POUCH RIGHT POSTERIOR GLUTEAL MARGIN. 2. INCISION, SUBCUTANEOUS DISSECTION, AND REMOVAL OF INTERNAL SPINAL CORD STIMULATOR LEADS ASSOCIATED WITH GENERATOR MIDLINE T1-2. 3. AEROBIC AND ANAEROBIC CULTURES TAKEN FROM BOTH INCISIONAL SITES. 4. CLOSURE OF INCISION WITH VICRYL FOR FASCIA, PAUL FOR SKIN. APPROPRIATE DRESSINGS PLACED. SURGEON: EDY PATEL D.O. ANESTHESIA: LOCAL SEDATION. ANESTHESIA PROVIDER: ZEE CASE INDICATION: This patient presents with a history of intractable cervical radiculitis with a generator at the right posterior gluteal margin. In June of 2017, a generator battery replacement performed. She developed a pouch infection, which was identified approximately 5 to 7 days ago. At that point in time, oral antibiotic therapy was started with Levaquin 500, once a day. She was evaluated over the following 3 to 4 days and found that the site was not improving, at which point she was sent to the Emergency Room. The Emergency admitted her for removal of the device and for the initiation of intravenous home-based therapy. SURGERY: Intravenous line, vital sign monitoring, IV sedation, prepped and draped with sterile technique. Patient positioned prone. Sterile prep, sterile technique. The generator pouch at the right posterior gluteal margin infiltrate , incision made and subcutaneous dissection was conducted to the generator. Purulent discharge noted. Aerobic and anaerobic cultures taken. Copious antibiotic irrigation performed. The generator was removed, it's connections cut. The leads interfaced to this particular generator at the midline T1-2 were marked, infiltrated, incision made and subcutaneous dissection was conducted to the anchors. Aerobic and anaerobic cultures were taken. The anchors, sutures, and the leads were removed intact. Imaging was performed to confirm all components of the leads, electrodes, and generator extensions were removed. Antibiotic irrigation and Bovie for hemostasis. Vancomycin Powder was then placed in both incisions and the incisions were closed using Vicryl for facia and apul for skin. Appropriate dressings were placed. She was transported to the Recovery Room stable. No side-effects from the procedure or the sedation. DISCHARGE INSTRUCTIONS: 1. She will have a PIC line placed prior to discharge, at which point home health care will be arranged. She will receive intravenous antibiotic, currently indicated as Cubicin IV once a day for 14 days. At the end of the IV antibiotic home-based therapy, she will be evaluated for discontinuation or continuation of therapy. 2. Standard medications will be resumed. We will be managing her oral opioids as previously managed. 3. All instructions provided. Numbers to contact for the patient have been given. She will be discharged from the facility for home health care. cc: Dr. Kareem España JOB NUMBER: [id number] MTDD
[2018-05-05] MEDS ORDERED: ALBUTEROL HFA 8 GM INHALER INH PRN (20:40)
[2018-05-05] MEDS: CLONAZEPAM 0.5 MG PO SCH (22:59)
[2018-05-05] MEDS: LISINOPRIL 10 MG PO SCH (22:59)
[2018-05-05] MEDS: CYCLOBENZAPRINE 10 MG PO SCH (22:59)
[2018-05-06] MEDS: CLINDAMYCIN 600MG/50ML PREMIX 600 MG/50 ML BAG IVPB SCH (01:16)
[2018-05-06] MEDS ORDERED: ACETAMINOPHEN 1,000 MG/100 ML BTL IV ONE (06:00)
[2018-05-06] MEDS ORDERED: CEFAZOLIN 2 Gram 2 GM/50 ML BAG IVPB ONE (06:00)
--- NOTE | 2018-05-06 07:25 | RADIOLOGY REPORT ---
EXAM: CHEST, ONE VIEW HISTORY: PIC LINE PLACEMENT. TECHNIQUE: A single AP view of the chest was obtained. Comparison: None. FINDINGS: Right upper extremity PIC with the tip in the SVC. Additional wires project over the right thorax. Skin paul are noted over the mid chest. The cardiomediastinal silhouette is normal in size. The pulmonary vasculature is not congested. No focal consolidation, pleural effusion, or pneumothorax is seen. IMPRESSION: RIGHT UPPER EXTREMITY PIC TERMINATES IN THE SVC. JOB NUMBER: [id number] MTDD
[2018-05-06] MEDS ORDERED: KETAMINE HCL 100MG/1ML VIAL INJ ONE (08:10)
[2018-05-06] MEDS ORDERED: FENTANYL PF 100MCG/2ML VIAL IV ONE (08:10)
[2018-05-06] MEDS ORDERED: MIDAZOLAM HCL 2MG/2ML VIAL IV ONE (08:10)
[2018-05-06] MEDS ORDERED: PROPOFOL 10 MG/ML VIAL IV ONE (08:10)
[2018-05-06] MEDS ORDERED: LIDOCAINE 2% MDV (20MG/ML) 20ML VIAL IV ONE (08:10)
[2018-05-06] MEDS: OXYMORPHONE 20 MG PO SCH (09:00)
[2018-05-06] MEDS: OXYMORPHONE 10 MG PO SCH (09:36)
[2018-05-06] MEDS: FAMOTIDINE 20 MG PO SCH (09:37)
[2018-05-06] MEDS: DULOXETINE 60 MG PO SCH (09:37)
[2018-05-06] MEDS: FLECAINIDE ACETATE 50 MG PO SCH (09:37)
[2018-05-06] MEDS ORDERED: DAPTOMYCIN 500 MG/VIAL IV ONE (11:00)
== END 2018-05-06 13:25 | disposition home health service (06) | DRG 603 ==
LOC: ER 15:20 → MEDSURG 18:04
PROVIDERS: ADMIT Pain Medicine Interventional Pain Medicine; ATTEND Pain Medicine Interventional Pain Medicine
DX: L03.317 Cellulitis of buttock (principal); I10 Essential (primary) hypertension; J44.9 Chronic obstructive pulmonary disease, unspecified; M06.9 Rheumatoid arthritis, unspecified; D64.9 Anemia, unspecified; K21.9 Gastro-esophageal reflux disease without esophagitis; K58.9 Irritable bowel syndrome, unspecified; Z95.5 Presence of coronary angioplasty implant and graft; Z86.73 Personal history of transient ischemic attack (TIA), and cerebral infarction without residual deficits; Z87.442 Personal history of urinary calculi; Z87.891 Personal history of nicotine dependence
CPT/HCPCS: 71045; 74176; 80048; 85025; 87070; 94640; 96365; 99285; J0878

== ENCOUNTER 2018-05-22 16:17 | Emergency (ER) | payer MEDICARE ==
--- NOTE | 2018-05-22 16:34 | Emergency Department Record ---
History of Present Illness - General Chief Complaint: Recheck - Other Stated Complaint: PICC LINE RED/WARM/PAINFUL Time Seen by Provider: 05/22/18 16:22 Source: Patient Mode of arrival: Ambulatory Limitations: No limitations - History of Present Illness Initial Comments: The patient is here due to having a PIC line placed yesterday here at [facility] and now the patient feels she is having pain at the site. Her visiting nurse made her come to the ER to see if there is a blood clot present. The patient used the PIC line last evening with no problems. MD Complaint: Wound re-check Onset/Timin -: Days(s) Initial Visit For: Other Returns Today for: Persistent/worsening pain related to initial visit, Wound recheck - Related Data Allergies Allergy/AdvReac Type Severity Reaction Status Date / Time meperidine HCl [From Demerol] Allergy Intermediate HIVES Verified 05/22/18 16:28 gabapentin [From Neurontin] AdvReac Severe ALTERED Verified 05/22/18 16:28 MENTAL STATUS adhesive tape AdvReac Intermediate SKIN Verified 05/22/18 16:28 IRRITATION codeine AdvReac Intermediate "I Verified 05/22/18 16:28 hyperventilate" NSAIDS (Non-Steroidal AdvReac Intermediate NAUSEA AND Verified 05/22/18 16:28 Anti-Inflamma VOMITING IV morphine AdvReac Intermediate DIFFICULTY Uncoded 05/22/18 16:28 SWALLOWING Travel Screening - Travel/Exposure Within Last 30 Days Have you traveled within the last 30 days?: No - Travel/Exposure Within Last Year Have you traveled outside the [place] in the last year?: No - Additonal Travel Details Have you been exposed to anyone with a communicable illness?: No - Travel Symptoms Symptom Screening: None Review of Systems Constitutional: Denies: Chills, Fever Past Medical History - SOCIAL HISTORY Smoking Status: Former smoker Alcohol Use: None Drug Use: None - RESPIRATORY Hx Respiratory Disorders: Yes Hx Bronchitis: Yes Hx COPD: Yes Hx Dyspnea: Yes (on exertion-pt quit smoking) Hx Pneumonia: Yes Comment:: sinus chronic - CARDIOVASCULAR Hx Cardio Disorders: Yes Hx Abnormal EKG: Yes (atrial tachycardia) Hx Cardiac Cath: Yes (december 2014-attempted x2 (ablation)) Hx Deep Vein Thrombosis: No Hx Hypertension: Yes (controlled with meds) Hx Irregular Heartbeat: Yes - NEURO Hx Neuro Disorders: Yes Hx Headaches: Yes (neck pain occassionally) Hx Seizures: Yes (hit head with TIA and had a seizure) Hx TIA: Yes Hx Weakness: Yes (legs-left worse) Comment:: "I have memory problems" - GI Hx GI Disorders: Yes Hx Abdominal Pain: (denies) Hx Diverticulitis: Yes Hx Reflux: Yes Hx Irritable Bowel: Yes Hx Nausea/Vomiting: (denies) Hx Obstructive Bowel: (tend to be constipated) Hx Pancreatitis: Yes (not recent) Hx Rectal Bleeding: No (denies) Hx Ulcer: Yes ("a few in colon") Hx Wt Loss/Wt Gain: Yes (gain of 40 lbs since quit smoking) Comment:: gastric bypass 16 years ago - Hx Genitourinary Disorders: Yes Hx Kidney Stones: Yes (not recent) Hx Renal Disease: Yes ("backs up"-lithotripsy done x4) Comment:: post hyst - ENDOCRINE Hx Endocrine Disorders: No - MUSCULOSKELETAL Hx Musculoskeletal Disorders: Yes Hx Arthritis: Yes (RA DDD neck herniated disc lumbar) Hx Fibromyalgia: Yes Comment:: rheumatoid arthritis - PSYCH Hx Psych Problems: Yes Hx Anxiety: Yes Hx Depression: Yes - HEMATOLOGY/ONCOLOGY Hx Hematology/Oncology Disorders: Yes Hx Anemia: Yes (due to gastric bypass) Hx Blood Transfusions: Yes Hx Blood Transfusion Reaction: No Family Medical History Any Significant Family History?: No Hx Cancer: Mother, Grandparents Hx Heart Disease: Father, Brother/Sister, Grandparents Hx HTN: Mother, Brother/Sister Physical Exam - General General Appearance: Alert, Cooperative, No acute distress - Head Head exam: Atraumatic, Normocephalic - Eye Eye exam: Normal appearance - Extremities Extremities exam: Normal inspection (There is a PIC line present over the medial arm. There is slight tenderness and bruising present a the site but no swelling, bleeding, erythema or warmth. The L arm appears very normal around the line.), Full ROM, Normal capillary refill, Tenderness (Very mild at the site of insertion.), Other (There is no tenderness or swelling around the PIC line or over the arm.) Course Vital Signs 05/22/18 16:20 Temperature 98.0 F Pulse Rate 85 Respiratory 20 Rate Blood Pressure 154/90 Pulse Ox 98 - Reevaluation(s) Reevaluation #1: I did discuss the neg Doppler with the patient and the need for F/U for any future problems. 05/22/18 18:51 Medical Decision Making - Data Complexity MDM Data: X-Ray Ordered and/or Reviewed - Radiology Data Radiology results: Report reviewed (L arm Doppler: Neg for DVT.) Disposition Disposition: Discharge Clinical Impression: PIC line (peripherally inserted central catheter) flush Disposition: Home, Self-Care Condition: (2) Stable Instructions: Peripherally Inserted Central Catheters and Midline Catheters (ED ) Additional Instructions: Please continue your previous instructions for your PIC line. Return to the ER for any problems. Forms: Patient Portal Access Time of Disposition: 18:45 Quality - Quality Measures Quality Measures: N/A - Blood Pressure Screening View Details: Yes Does Patient Have Any of the Following: No Blood Pressure Classification: Hypertensive Reading Systolic Measurement: 154 Diastolic Measurement: 90 Screening for High Blood Pressure: < First Hypertensive BP, F/U Documented > [ [id number]] First Hypertensive Follow-up Interventions: Referral to alternative/primary care provider.
[2018-05-22] MEDS ORDERED: HEPARIN SODIUM FLUSH 100 UNITS/ML SYR 5ML IVP ONE (18:16)
--- NOTE | 2018-05-25 10:06 | US VENOUS DOPPLER REPORT ---
EXAM: VENOUS DOPPLER ULTRASOUND OF THE LEFT UPPER EXTREMITY HISTORY: DEEP VEIN THROMBOSIS. TECHNIQUE: Sonographic evaluation of the deep venous system of the left upper extremity was performed with the addition of Doppler, compression, and augmentation. FINDINGS: There is normal blood flow, compression, and augmentation identified in the deep venous system of the left upper extremity. IMPRESSION: NEGATIVE FOR DEEP VEIN THROMBOSIS IN THE LEFT UPPER EXTREMITY. JOB NUMBER: [id number] MTDD
== END 2018-05-22 18:53 | disposition home or self-care (01) ==
LOC: ER 16:17
DX: T82.898A Other specified complication of vascular prosthetic devices, implants and grafts, initial encounter (principal); M79.622 Pain in left upper arm; I10 Essential (primary) hypertension; J44.9 Chronic obstructive pulmonary disease, unspecified; Z87.891 Personal history of nicotine dependence
CPT/HCPCS: 99283 ×2; 93971; J1642

== ENCOUNTER 2018-11-04 07:22 | Day surgery (SDC) | payer BC, MEDICARE ==
--- NOTE | 2018-11-04 06:35 | History and Physical - Ferro ---
CHIEF COMPLAINT/HISTORY OF CHIEF COMPLAINT: This patient presents with a history of an intractable cervical radiculopathy which previously was controlled through a spinal cord stimulator internal generator. A pouch infection developed at the generator on the posterior gluteal margin which required removal of the cervical stimulator and generator. All antibiotic therapy has been completed, the sites are fully healed, and she is requesting reimplantation of the system. PAST MEDICAL HISTORY: Chronic pulmonary disease, asthmatic bronchitis, hypertension, and seizure disorder. PAST SURGICAL HISTORY: Knee surgery, section, gastric bypass, gallbladder surgery, eye surgery, and spinal cord stimulator implant. MEDICATIONS ON ADMISSION: List to be provided. ALLERGIES: CODEINE, DEMEROL, AND NEURONTIN. FAMILY/PSYCHOSOCIAL HISTORY: Family history - Thyroid disease, asthma, coronary artery disease, hypertension and cancer. Social history - Smoker. Caffeine. SYSTEMS REVIEW: The patient is appropriate in no acute distress. PHYSICAL EXAMINATION: Height is 5', weight is 200 pounds. No vital signs. HEENT: Within normal limits. LUNGS: Clear. HEART: Rapid and regular. ABDOMEN: Nontender. MUSCULOSKELETAL: Examination of the musculoskeletal system shows diffuse tenderness throughout the cervical spine extending into the upper extremities bilateral. The incisional site for the leads placement and removal approximating T1-T2 intact. Generator at the posterior gluteal margin identified and intact. Upper extremity functionality intact. There is mild motor and sensory abnormalities extending across a C5-C6 and C6-C7 distribution into the hands and fingers. Sensory browning are intact. NEUROLOGIC: Cranial nerves are intact. IMPRESSION: CERVICAL RADICULOPATHY, ICD-10 CODE M54.12. PLAN: The patient is here for reimplantation of a cervical spinal cord stimulator and internal generator. This patient is somewhat large and heavy. She was very difficult, almost impossible to easily sedate. During the procedure requires typically light sedation for the implanted needles and lead placement and then being awake for programming. This was in the patient's words traumatic and she is requesting that we perform the procedure without the wake up. We reviewed this in some detail, she understands the potential risks, placing the system, turning it on after the fact once the lead had been implanted without known the appropriate position, however, we do have x-rays from previous trial and implant, we know the optimal position, we should be able just to duplicate the position based on imaging, activate the system and come up with the same programming. She is willing to take that chance to avoid the wake-up during the procedure. We will consider the procedure outpatient although an overnight stay will be evaluated. The potential risks, side effects and complications have all been reviewed and discussed. JOB NUMBER: [id number] MTDD
[~2018-11-04 07:22] MED LIST changes: +CEFAZOLIN 1 Gram 1 GM/50 ML BAG IVPB ONE
[2018-11-04] MEDS ORDERED: LIDOCAINE 2% MDV (20MG/ML) 20ML VIAL IV ONE (07:23)
[2018-11-04] MEDS ORDERED: PROPOFOL 10 MG/ML VIAL IV ONE (07:23)
[2018-11-04] MEDS ORDERED: HYDROMORPHONE HCL 2 MG/ML VIAL IV ONE (07:23)
[2018-11-04] MEDS ORDERED: FENTANYL PF 100MCG/2ML VIAL IV ONE (07:23)
[2018-11-04] MEDS ORDERED: DEXMEDETOMIDINE HCL 200 MCG/2 ML VIAL IV ONE (07:23)
[2018-11-04] MEDS ORDERED: MIDAZOLAM HCL 2MG/2ML VIAL IV ONE (07:23)
[2018-11-04] MEDS ORDERED: RINGERS SOLUTION,LACTATED 1,000 ML IV ONE ×3 (08:20→12:25)
[2018-11-04] MEDS ORDERED: BUPIVACAINE 0.5% W/EPI MPF 30 ML VIAL SQ ONE ×2 (09:38)
[2018-11-04] MEDS ORDERED: LIDOCAINE 1% W/EPI 1:100,000 MDV 20 ML VIAL SQ ONE ×2 (09:38)
[2018-11-04] MEDS ORDERED: CEFAZOLIN 0.5 G in 0.9 % SODIUM CHLORIDE 1000ML 500 ML IVPB ONE (09:39)
[2018-11-04] MEDS ORDERED: CAFFEINE/SODIUM BENZOATE 250MG 500 MG in 0.9 % SODIUM CHLORIDE 100ML 100 ML IVPB ONE (11:35)
[2018-11-04] MEDS ORDERED: OXYCODONE/APAP 10MG-325MG TABLET PO ONE (12:14)
--- NOTE | 2018-11-05 08:50 | Operative Note ---
DATE OF SURGERY: 11/04/2018 PREOPERATIVE DIAGNOSIS: Intractable cervical radiculopathy ICD-10 code M54.12. OPERATION: 1. Fluoroscopic-guided access epidural space left T1-2, placement of spinal cord stimulator lead 1 [employer] Infinion 16 6 electrodes, positioned left C2. 2. Fluoroscopic-guided epidural access left T2-3, placement of spinal cord stimulator lead 2 [employer] Infinion 16 6 electrodes, positioned right C2. 3. Complex program director/air personality 1 over 20 minutes, complex program director/air personality 2 over 20 minutes. 4. Incision and subcutaneous dissection and anchoring of lead 1 and lead 2 to supraspinous fascia with a [employer] locking anchor. 5. Incision and subcutaneous dissection for creation of a subcutaneous pouch at left flank for placement of generator, identified as a [employer] programmable rechargeable WaveWriter. 6. Tunneling between midline incision and tunneling leads into generator pouch, interface each lead to generator. 7. Closure of incisions using Vicryl for fascia and paul for skin. 8. Complex programming internal generator, home use 2 stimulators 20 minutes. SURGEON: Cristi Nova D.O. ANESTHESIA: Local sedation. ANESTHESIA PROVIDER: Mateo Akers CRNA INDICATION: This patient presents with a history of intractable cervical radiculopathy. A previous system had been removed because of a pouch infection at the right posterior gluteal margin. After appropriate treatments and clearance and full resolution of the infection, she is here by her request for replacement of the system. PROCEDURE: Intravenous line, vital sign monitoring, IV sedation, prepped and draped in sterile technique. The patient was positioned prone, sterile prep, sterile technique. The epidural interspace from the left of midline to T1-2 and 2-3 were both marked and infiltrated using standard epidural needles, loss of resistance, the space was accessed. At 1-2 spinal cord stimulator lead 1 [employer] Infinion 16 6 electrodes positioned left of C2, with the access at L2-3 left of midline. Same technique, spinal cord stimulator lead 2 [employer] Infinion 16 6 electrodes positioned right at C2. Complex programming of lead 1 over 20 minutes, followed by complex programming of lead 2 over 20 minutes, resulted in complete pattern stimulation across the neck and into the shoulders and arms. The patient indicating we had the areas. She was then re-sedated. The skin above and below the needles infiltrated. An incision was made and subcutaneous dissection was conducted in the supraspinous fascia. The needles were removed and each lead was anchored to the supraspinous fascia with a [employer] locking anchor nonabsorbable suture. At the left flank, the site picked by the patient for the generator, a [employer] programmable rechargeable WaveWriter. The skin infiltrated, an incision made and subcutaneous dissection was conducted to form a pouch of suitable size and depth. A tunneling tool was used to carry the leads into the generator pouch and then each lead was interfaced with the generator. Antibiotic irrigation and Bovie for hemostasis. The leads were placed in their pouch. The generator was placed into its own pouch and then both incisions were closed using Vicryl for the fascia and paul for the skin. An Op-Site dressing was then placed over the incisions. She was transported to the recovery room stable, no side effects from the procedure or sedation. Although no obvious dural puncture had taken place, there was a point at the procedure where some CSF was noticed from the upper needle. She was given an intravenous caffeine infusion in the recovery room as a prophylactic measure. She will be kept and monitored and then discharged to home by her request. DISCHARGE INSTRUCTIONS: 1. The sites will remain clean and dry, no showering or bathing in any way that would disrupt dressings. If this happens, to contact the clinic. 2. Standard medications resumed including the antibiotic Levaquin. She will take 500 mg once a day for 14 days. 3. The office to contact the patient in the next 2 to 3 days and set up a time in the next 7 to 10 days for us to evaluate the sites and remove the paul. Until then, she is to keep her activities controlled. 4. All other instructions were provided, with numbers to contact if problems given. She will be discharged by her request. CC: Dr. Taco ROMERO
--- NOTE | 2018-11-06 20:32 | RADIOLOGY REPORT ---
EXAM: SPINE, 1 VIEW HISTORY: STATUS POST SPINAL CORD STIMULATOR IMPLANT. TECHNIQUE: Single frontal view of the cervicothoracic spine. COMPARISON: Spine radiograph 09/18/16. FINDINGS: New vertically-oriented paired stimulator leads are seen extending in the projection of the inferior C2 through upper C7 level. Obliquely-oriented upper cervical leads appear similar from comparison exam. Skin paul are seen in the projection of the left upper chest. A partially seen generator device is seen in the right abdominal area. Limited visualization of the lung browning due to superimposing artifact. IMPRESSION: SPINAL STIMULATOR LEADS, ABOVE. PLEASE SEE OPERATIVE REPORT FOR ADDITIONAL DETAILS. JOB NUMBER: [id number] MTDD
== END 2018-11-04 13:06 | disposition home or self-care (01) ==
LOC: SUR 07:22
PROVIDERS: ATTEND Pain Medicine Interventional Pain Medicine
DX: M54.12 Radiculopathy, cervical region (principal); M06.9 Rheumatoid arthritis, unspecified; I10 Essential (primary) hypertension; J44.9 Chronic obstructive pulmonary disease, unspecified; I47.1 Supraventricular tachycardia; Z86.73 Personal history of transient ischemic attack (TIA), and cerebral infarction without residual deficits; Z98.84 Bariatric surgery status
CPT/HCPCS: 63650; 63685; 01936; 95972; 72020; J3010; J1170; J0690; J3490 ×2; C1820; C1883; J7030; J7120

== ENCOUNTER 2019-01-13 06:36 | Day surgery (SDC) | payer BC, MEDICARE ==
--- NOTE | 2019-01-13 06:24 | History and Physical - [facility]ro ---
CHIEF COMPLAINT/HISTORY OF CHIEF COMPLAINT: This patient presents with a history of an intractable cervical radiculopathy. On 11/04/18 a spinal cord stimulator implant with internal generator placed to the left flank. Subsequent to that placement the patient started noticing mobility with respect to the generator in the pouch. Over the last several weeks to month this patient has noticed almost free mobility of the generator within the pouch, in fact at a point during the evaluation today we were able to almost completely flip the generator in the pouch which would suggest a problem with respect to the retention suture and perhaps breaking of the retention suture keeping the generator within the pouch. Because of the risk that this may flip and damage the leads it was felt appropriate to revise the pouch, reposition and re-anchor the generator as quickly as possible. PAST MEDICAL HISTORY: Chronic pulmonary disease, asthmatic bronchitis, hypertension, and seizure disorder. PAST SURGICAL HISTORY: Knee surgery, section, gastric bypass, gallbladder surgery, eye surgery, and spinal cord stimulator implant. MEDICATIONS ON ADMISSION: List to be provided. ALLERGIES: CODEINE, DEMEROL AND NEURONTIN. FAMILY/PSYCHOSOCIAL HISTORY: Family history - Thyroid disease, asthma, coronary artery disease, hypertension, and cancer. Social history - Smoker, caffeine. SYSTEMS REVIEW: The patient is appropriate in no acute distress. PHYSICAL EXAMINATION: Height is 5', weight is 200 pounds. No vital signs. HEENT: Within normal limits. LUNGS: Clear. HEART: Rapid and regular. ABDOMEN: Nontender. MUSCULOSKELETAL: Examination of the musculoskeletal system shows the generator in the left flank tipping at perhaps a 35-45 degree angle. The incisional site is intact. Underlying pain pattern bilateral upper extremity. No motor or sensory abnormalities. NEUROLOGIC: Cranial nerves are intact. IMPRESSION: 1. LUMBAR RADICULOPATHY, ICD-10 CODE M54.12. 2. CERVICAL SPINAL CORD STIMULATOR AND INTERNAL GENERATOR WITH POUCH BREAKDOWN INTERNALLY. PLAN: The patient is here for revision of the pouch. We will not change the generator only reattach the generator to the deep subcutaneous tissue anchoring the generator insuring stability. The procedure will be outpatient. JOB NUMBER: [id number] MTDD
[~2019-01-13 06:36] MED LIST changes: -ACETAMINOPHEN 1,000 MG/100 ML BTL IV ONE; +ACETAMINOPHEN 1,000 MG/100 ML BTL IVPB ONE
[2019-01-13] MEDS ORDERED: PROPOFOL 10 MG/ML VIAL IV ONE (06:37)
[2019-01-13] MEDS ORDERED: KETAMINE HCL 100MG/1ML VIAL INJ ONE (06:37)
[2019-01-13] MEDS ORDERED: LIDOCAINE 2% MDV (20MG/ML) 20ML VIAL IV ONE (06:37)
[2019-01-13] MEDS ORDERED: MIDAZOLAM HCL 2MG/2ML VIAL IV ONE (06:37)
[2019-01-13] MEDS ORDERED: FENTANYL PF 100MCG/2ML VIAL IV ONE (06:37)
[2019-01-13] MEDS ORDERED: RINGERS SOLUTION,LACTATED 1,000 ML IV ONE (08:11)
[2019-01-13] MEDS ORDERED: BUPIVACAINE 0.5% W/EPI MPF 30 ML VIAL SQ ONE (08:46)
[2019-01-13] MEDS ORDERED: LIDOCAINE 1% W/EPI 1:100,000 MDV 20 ML VIAL SQ ONE (08:46)
[2019-01-13] MEDS ORDERED: OXYCODONE/APAP 10MG-325MG TABLET PO ONE (09:05)
--- NOTE | 2019-01-15 11:01 | Operative Note ---
DATE OF SURGERY: 01/13/2019 PREOPERATIVE DIAGNOSES: 1. Cervical radiculopathy, ICD10 code M54.2. 2. Spinal cord stimulator internal generator with pouch and generator flip. OPERATION: 1. Fluoroscopic-guided incision and subcutaneous dissection and revision of left flank pouch for spinal cord stimulator generator. 2. Reposition and re-anchoring of internal pulse generator into a revised pouch securing and anchoring with Eth[employer] nonabsorbable suture, closure of incision Stratafix suture, Dermabond closure. 3. Complex programming and electrical analysis internal pulse generator. SURGEON: Cristi Nova DO ANESTHESIA: Local with sedation. ANESTHESIA PROVIDER: Sara Keenan CRNA INDICATION: The patient presents with a history of intractable cervical radiculopathy. A spinal cord stimulator internal generator positioned which is working appropriately. The generator to the left posterior flank pouch appears to have broken free of the anchoring suture and began to rotate and flip within the pouch risking the leads for damage. She is here for revision of pouch. PROCEDURE: Intravenous line, vital signs monitoring, IV sedation. Prepped and draped in sterile technique. Patient positioned prone. The incision for the previous pouch was infiltrated with local. Incision was made, subcutaneous dissection was conducted to the pouch. The generator which was found to be in almost a 45-degree angle was removed from the pouch. antibiotic irrigation and Bovie for hemostasis. The pouch deep component was then closed with Vicryl suture. A new pouch was formed circumferentially at the same incisional site more superficial and at the appropriate plane. Antibiotic irrigation, Bovie for hemostasis. The generator was then twisted and uncoiled from the loops, placed back into the pouch, secured with an Ethibond suture, and then the incision was closed using Stratafix suture, 2-0 fascia, 3-0 skin, Dermabond closure. Computer assessment of the device showed all electrode functionality impedances and functionality. She was transported to the recovery room stable. No side effects from the procedure or the sedation. DISCHARGE INSTRUCTIONS: 1. Sites to remain clean and dry. No showering or bathing in any way that would disrupt dressings. If it happens, contact the clinic. 2. Standard medications resumed including the antibiotic Levaquin. She will take 500 mg once a day for 14 days. 3. Office to contact the patient in the next 12-24 hours to set up a time in 7- 10 days to evaluate the incision. Until then, her activities should stay controlled. All other instructions provided, numbers to contact if problems given. She can shower with the Dermabond but not sit in water. We will see her in 7-10 days. HEATHER
== END 2019-01-13 09:45 | disposition home or self-care (01) ==
LOC: SUR 06:36
PROVIDERS: ATTEND Pain Medicine Interventional Pain Medicine
DX: M54.2 Cervicalgia (principal); I10 Essential (primary) hypertension; M06.9 Rheumatoid arthritis, unspecified; K21.9 Gastro-esophageal reflux disease without esophagitis; Z98.61 Coronary angioplasty status
CPT/HCPCS: 95972; J3490; J7120

== ENCOUNTER 2019-05-26 10:27 | Day surgery (SDC) | payer MEDICARE ==
--- NOTE | 2019-05-26 07:27 | History and Physical - [facility] ---
CHIEF COMPLAINT/HISTORY OF CHIEF COMPLAINT: This patient presents with a history of an intractable cervical radiculopathy. A current cervical spinal cord stimulator internal generator is in place. Placement procedure 04/19/15. Subsequent migration has resulted in non-functionality of the system. Attempts at conservative reprogramming to reestablish stimulation were unsuccessful., The patient is nearly impossible to handle under simple sedation. It was suggested to the patient that a revision would be nearly impossible because of this. The recommendation was removal under general anesthetic. The patient lobbied for a revision despite all the recommendations for removal. There was a certain number of issues relative to the insurance company and these have all been met mostly by the patient's insistence. Since when the system was fully functional it was the only time she had any appreciable control of her neck, shoulder and arm pain. She is here after a number of conservative options have failed to revise her current cervical stimulators under a general anesthetic. PAST MEDICAL HISTORY: Chronic obstructive pulmonary disease, asthmatic bronchitis, emphysema, hypertension, and seizure disorder. PAST SURGICAL HISTORY: Knee surgery, section, gastric bypass, gallbladder surgery, eye surgery, hysterectomy, and stimulator implant. MEDICATIONS ON ADMISSION: List to be provided. ALLERGIES: CODEINE, DEMEROL AND NEURONTIN. FAMILY/PSYCHOSOCIAL HISTORY: Family history - Thyroid disease, asthma, coronary artery disease, hypertension, and cancer. Social history - Smoking. SYSTEMS REVIEW: The patient is appropriate in no acute distress. PHYSICAL EXAMINATION: Height is 5', weight is 280. No vital signs. HEENT: Within normal limits. LUNGS: Clear. HEART: Rapid and regular. ABDOMEN: Nontender. MUSCULOSKELETAL: Examination of the musculoskeletal system shows the incision for the leads approximating the upper thoracic spine. The generator is at the flank and posterior margin is identified. The incisions are all intact. The primary pain pattern is neck, shoulder and arm. Mild motor and sensory abnormalities in both upper extremities. NEUROLOGIC: Cranial nerves are intact. IMPRESSION: 1. CERVICAL RADICULOPATHY, ICD-10 CODE M54.12. 2. CERVICAL SPINAL CORD STIMULATOR INTERNAL GENERATOR NONFUNCTIONAL. PLAN: As stated the patient is impossible to manage with this type of procedure under sedation. We discussed removal, the patient has been quite insistent on a revision. We suggested the only way this could be performed was under a general anesthetic which would eliminate the possibility of testing once the system is navigated and repositioned. The patient understands this and is willing to take the potential chance that we may revise this system without being able to test it and end up with a system which is not appropriately functional. Our plan will be to handle this under general anesthetic. We will more than likely be required to remove the leads and replace them with new leads and guidewires to insure the appropriate navigational capabilities to reposition these leads. The risks, side effects and complications have all been reviewed and discussed in detail. She has been put in contact with a clinical specialist from [facility] who has also emphasized all of the above. The procedure will be considered outpatient although an overnight stay will be evaluated. The potential risks, side effects and complications of not only the procedure, but of the anesthetic have been reviewed and discussed. The patient understands and has been quite insistent on moving forward. JOB NUMBER: [id number] MTDD
[2019-05-26] MEDS ORDERED: *PACU ONLY* KETAMINE HCL 10 MG/ML (20ML) VIAL IV ONE (10:28)
[2019-05-26] MEDS ORDERED: FENTANYL PF 100MCG/2ML VIAL IV ONE (10:28)
[2019-05-26] MEDS ORDERED: LIDOCAINE 2% MDV (20MG/ML) 20ML VIAL IV ONE (10:28)
[2019-05-26] MEDS ORDERED: MIDAZOLAM HCL 2MG/2ML VIAL IV ONE (10:28)
[2019-05-26] MEDS ORDERED: PROPOFOL 10 MG/ML VIAL IV ONE (10:28)
[2019-05-26] MEDS ORDERED: RINGERS SOLUTION,LACTATED 1,000 ML IV ONE (11:01)
[2019-05-26] MEDS ORDERED: LIDOCAINE 1% W/EPI 1:100,000 MDV 20 ML VIAL SQ ONE (13:38)
[2019-05-26] MEDS ORDERED: BUPIVACAINE 0.5% W/EPI MPF 30 ML VIAL SQ ONE (13:38)
[2019-05-26] MEDS ORDERED: CEFAZOLIN 1G VIAL IR ONE (13:39)
[2019-05-26] MEDS ORDERED: OXYCODONE/APAP 10MG-325MG TABLET PO ONE (14:01)
--- NOTE | 2019-05-27 07:39 | Operative Note - Ferro ---
DATE OF SURGERY: 05/26/2019 PREOPERATIVE DIAGNOSIS: 1. CERVICAL RADICULOPATHY, ICD-10 CODE M54.12. 2. CERVICAL SPINAL CORD STIMULATOR INTERNAL GENERATOR NONFUNCTIONAL. OPERATION: 1. FLUOROSCOPICALLY GUIDED INCISION, SUBCUTANEOUS DISSECTION, AND REMOVAL OF INTERNAL GENERATOR LEFT POSTERIOR GLUTEAL MARGIN. 2. INCISION, SUBCUTANEOUS DISSECTION, AND REMOVAL OF TWO INDWELLING SPINAL CORD STIMULATORS. SURGEON: Cristi Nova D.O. ANESTHESIA: Local sedation ANESTHESIA PROVIDER: EVIE Keenan CRNA INDICATION: This patient with a history of intractable cervical radiculopathy had a cervical spinal cord stimulator placed which migrated. She had a generator pouch which was also troublesome for which a generator revision was performed. The patient's difficult to impossible to handle under simple sedation. Since a revision would be indicated for the migrating cervical leads an intense discussion over time was conducted between the patient, Anesthesia and myself. It was felt that any attempts to perform a revision with the meticulous work required to reposition, re-navigate and test the leads with this patient's rapid metabolizing and unpredictable effects through sedation that our chance of revising the leads under sedation would be a low probability of success. It was then discussed to handle the revision under general anesthesia which would be the only way we could maintain a quiet healed absent of movement. The problem with the general anesthetic and revision is that the revision requires testing to know appropriate location of the electrodes or leads, under general anesthetic this would not be possible. The overall probabilities of coming out of a general anesthetic with good lead and electrode positions maintaining appropriate stimulation would be a low probability event, at best 50% which would suggest that the chances would be equal that we would come out with a system suboptimal in function. It was my recommendation that a revision not be performed, that we in fact remove the leads and consider other options. Although initially she had opted for revision under general anesthetic, today after further discussion she opted to have the leads removed which I feel is a better and a safer option for her. PROCEDURE: Intravenous line, vital sign monitoring, IV sedation, prepped and draped, sterile technique. The patient is positioned prone. Sterile prep, sterile technique. The incisions for the two cervical leads was infiltrated, an incision was made, and subcutaneous dissection was conducted to the anchors. The anchors were removed and the leads were removed intact. All electrodes are accounted for. At the left flank generator pouch the skin was was infiltrated, an incision was made, and subcutaneous dissection was conducted to the generator. The generator was exteriorized along with the connections to the leads. Antibiotic irrigation, Bovie for hemostasis at both sites. The incisions were then both closed using 2-0 Vicryl and paul for skin. An Op- Site dressing was placed over the sites. She was transported to the Recovery Room stable. No side effects from the procedure or sedation. When fully awake and alert she will be discharged to home. DISCHARGE INSTRUCTIONS: 1. The sites are to remain clean and dry. Office to contact the patient in 3-5 days to set up a time in 7-10 days for us to evaluate the sites. Until then she is to keep the sites clean and dry, limit bend, lift, push, pull. We have provided a prescription for analgesics as well as a prescription for antibiotics which she will take over the next 10-14 days. 2. Office to contact the patient to set up the evaluation as well as start the process to evaluate this patient for a possible intrathecal infusion pump trial. All other instructions were provided. Numbers to contact if problems give. She will be discharged. JOB NUMBER: [id number] MTDD
== END 2019-05-26 14:45 | disposition home or self-care (01) ==
LOC: SUR 10:27
PROVIDERS: ATTEND Pain Medicine Interventional Pain Medicine
DX: T85.193A Other mechanical complication of implanted electronic neurostimulator, generator, initial encounter (principal); M06.9 Rheumatoid arthritis, unspecified; I10 Essential (primary) hypertension; J44.9 Chronic obstructive pulmonary disease, unspecified; K21.9 Gastro-esophageal reflux disease without esophagitis; E66.9 Obesity, unspecified; Z68.42 Body mass index [BMI] 45.0-49.9, adult; Z86.73 Personal history of transient ischemic attack (TIA), and cerebral infarction without residual deficits
CPT/HCPCS: J0690; J7120